=== PATIENT | female | born 1985 | race Caucasian/White ===

== ENCOUNTER 2025-02-08 02:03 | Outpatient (CLI) | payer BC, SELFPAY ==
--- NOTE | 2025-02-08 06:15 | DI.MAMMO_ITS ---
Exam(s) MAMMO SCREENING EXAM: MAMMO SCREENING CLINICAL HISTORY: screening,z12.30,family h/o breast ca,z80.3 TECHNIQUE: Bilateral full field digital CC and MLO mammographic images were obtained with 3D tomosyn thesis and utilizing computer aided detection (CAD). COMPARISON: This is a baseline examination. FINDINGS: Masses/Architectural Distortion: No suspicious masses or areas of architectural distortion are presen t. Microcalcifications: No suspicious pleomorphic-type are seen. Skin Thickening/Nipple Retraction: None. IMPRESSION: 1. No evidence for malignancy is seen at this time. 2. Unless there is more urgent need, screening mammography is recommended, as per [employer] guidelines. BI-RADS Category 1 - Negative Breast Density - Category C - The breast are heterogeneously dense, which may obscure small masses. Breast density Category C or D implies that the patient has dense breast tissue. Dense breast tissue can make it harder to find cancer on a mammogram. Dense breast tissue is also associated with an incr eased risk of breast cancer. This information about the result of the mammogram report was provided to the patient to raise their awareness. Use this report when you speak with the patient about their risks for breast cancer, which includes their family history. At that time, you may recommend additional screening tests (Ultrasoun d or MRI) as these tests may add significant information. A negative radiographic report should not delay biopsy if a dominant or clinically suspicious mass is present. Up to ten percent of cancers are not identified on mammography. A negative report may reinforce clinical impression. Adenosis and dense breasts may obscure an underlying neoplasm. False positive reports average 6 to 10%. Patient will receive a letter notifying them of these results.
== END 2025-02-08 02:23 ==
LOC: DI 02:03
PROVIDERS: PCP Nurse Practitioner; Visit Provider Nurse Practitioner
DX: Z12.31 Encounter for screening mammogram for malignant neoplasm of breast (principal); Z80.3 Family history of malignant neoplasm of breast; R92.333 Mammographic heterogeneous density, bilateral breasts
CPT/HCPCS: 77063; 77067

== ENCOUNTER 2025-02-08 02:51 | Outpatient (CLI) | payer BC, SELFPAY ==
[2025-02-08 07:35] LABS: HCT 38.3 % (36.0-46.0); HGB 12.8 g/dL (11.2-15.7); MCH 30.7 pg (27.0-33.0); MCHC 33.4 % (32.0-36.0); MCV 92 fL (80-95); Platelet Count 236 10^3/uL (130-400); RBC 4.17 10^6/uL (3.93-5.22); RDW 12.4 % (11.7-14.6); RDW-SD 41.6 fL; WBC 6.47 10^3/uL (4.4-10.8)
[2025-02-08 08:11] LABS: ALT 12 U/L (14-59); AST 11 U/L (15-37); Albumin 3.9 g/dL (3.4-5.0); Alkaline Phosphatase 59 U/L (46-116); BUN 12 mg/dL (7-18); Bilirubin, Total 1.4 mg/dL (0.2-1.0); CREATININE 0.7 mg/dL (0.55-1.02); Calcium 8.9 mg/dL (8.5-10.1); Chloride 105 mmol/L (98-107); Cholesterol 152 mg/dL (<200); Estimated GFR 112.75 (mL/min/1.73m2); Glucose 97 mg/dL (74-106); HDL Cholesterol 82 mg/dL (>or=50); Sodium 140 mmol/L (136-145); Total Protein 6.8 g/dL (6.4-8.2); Triglyceride <25 mg/dL (<150)
[2025-02-08 08:23] LABS: LDL CHOLESTEROL 63 mg/dL (<100)
[2025-02-09 10:41] LABS: Hepatitis B Surface Ab Positive (See Note)
[2025-02-09 11:50] LABS: Measles IgG Antibody Negative (See Note)
== END 2025-02-08 02:52 | disposition home or self-care (01) ==
PROVIDERS: PCP Nurse Practitioner; Visit Provider Nurse Practitioner
DX: Z13.220 Encounter for screening for lipoid disorders (principal); Z01.84 Encounter for antibody response examination; R10.9 Unspecified abdominal pain
CPT/HCPCS: 36415; 80053; 80061; 83721; 85027; 86706; 86765